=== PATIENT | female | born 1960 | race Caucasian/White ===

== ENCOUNTER 2019-08-11 17:24 | Outpatient (REF) | payer SELFPAY ==
--- NOTE | 2019-08-11 14:30 | SKI_PTH ---
PATIENT: NELIA DAS LOC: [facility] U#:[id number] AGE/SX: 59/F ROOM: RE08/11/[address]: Mitra Bocanegra : 1960 BED: DIS: 08/11/2019 SPEC #: [id number] RECD: 08/11/19 17:59 STATUS: TEX REQ #: [id number] SAURABH: 08/11/19 14:[address]: Mitra Bocanegra DEPT: Surgical Specimen RECD BY: Kandy Albert ENTERED: 08/11/19 18:00 SP TYPE: GABRIELLE DE GUZMAN DR: Maritza Ledezma Tissues: 1 - SKIN BIOPSY(SHAVE/PUNCH) Procedures: SKIN LEVEL 4 Comments: [id number]
== END 2019-08-11 17:44 ==
LOC: LBN 17:24
PROVIDERS: PCP Nurse Practitioner Family; Visit Provider Surgery
DX: L98.0 Pyogenic granuloma (principal)
CPT/HCPCS: 88305